=== PATIENT | female | born 1990 | race Caucasian/White ===

== ENCOUNTER 2020-08-15 11:56 | Observation (INO) | payer OTHER, SELFPAY ==
[2020-08-15 12:20] VITALS: BP 114/68; PULSE 113
[2020-08-15 13:00] VITALS: TEMP 36.6
[2020-08-15 13:13] LABS: Add Urine Microscopic? YES; Appearance Urine Cloudy (Clear); Bacteria Urine Trace /hpf; Bilirubin Urine Negative (Negative); Blood Urine Negative (Negative); Color Urine Amber (Yellow); Glucose Urine UA Negative (Negative); Ketones Urine 2+ mg/dL (Negative); Leukocyte Esterase Ur Negative LEU/UL (NEGATIVE); Mucus Urine Heavy /lpf; Nitrate Urine Negative (Negative); Protein Urine 2+ mg/dL (Negative); RBC Urine 0-2 /hpf (0-2); Squamous Epithelial Cell Urine Many /hpf (Few); Urobilinogen Urine Negative mg/dL (<2.0); WBC Urine 0-3 /hpf (0-3)
[2020-08-15 13:19] LABS: Specific Grav Ur 1.032 (1.001-1.035)
[2020-08-15 13:37] VITALS: BMI 27.4
--- NOTE | 2020-08-15 13:37 | OBADM ---
This patient, Alaina Medellin, admitted to the OB room OB Post 113 for observation. Patient/family oriented to hospital policies and general routines including ID bracelet, bed and alarms, visiting hours, pain management, procedures, bathroom and other care routines, personal items, smoking policy, room service/diet, and visiting hours. Patient/Family are encouraged to report perceived risks to care and to ask questions if they do not understand what they are told or what they should do.
--- NOTE | 2020-08-15 13:49 | PC.NURSE ---
1235- on unit,reviewed strip. Orders given to send UA.
--- NOTE | 2020-08-15 13:49 | PC.NURSE ---
[id number]- called, read UA results and informed irritability has decreased with irregular contractions. Discharge order received.
--- NOTE | 2020-08-15 14:06 | PM.OBTRLD ---
OB - Triage/Final Diagnosis Visit Information Comments/Additional reasons for admission: I have assessed the risk for this patient, Alaina Medellin, and determined that she would benefit from observation care. Evaluation Laboratory results: Laboratory Tests 08/15/20 12:50 Urine Color Brittny Urine Appearance Cloudy H Urine pH 6.0 Ur Specific [place] 1.032 Urine Protein 2+ H Urine Glucose (UA) Negative Urine Ketones 2+ H Ur Blood (Man) Negative Urine Nitrate Negative Urine Bilirubin Negative Urine Urobilinogen Negative Ur Leukocyte Esterase Negative Urine RBC 0-2 Urine WBC 0-3 Ur Squamous Epith Cells Many H Urine Bacteria Trace Urine Mucus Heavy H Vital signs: Vital Signs - 24 hr 08/15/20 12:20 Pulse Rate 113 H Blood Pressure 114/68 Final Diagnosis (1) Decreased movement: Code(s): O36.8190 - Decreased movements, unspecified trimester, not applicable or unspecified Status: Acute (2) Nausea and vomiting during : Code(s): O21.9 - Vomiting of , unspecified Status: Acute
== END 2020-08-15 14:24 | disposition home or self-care (01) ==
PROVIDERS: Admitting Provider Obstetrics & Gynecology; PCP Internal Medicine; Visit Provider Obstetrics & Gynecology
DX: O36.8130 Decreased fetal movements, third trimester, not applicable or unspecified (principal); O21.0 Mild hyperemesis gravidarum; Z3A.36 36 weeks gestation of pregnancy
CPT/HCPCS: 81001; G0378; G0379

== ENCOUNTER 2020-09-04 11:04 | Outpatient (CLI) | payer OTHER, SELFPAY ==
[2020-09-04 11:44] LABS: Hematocrit 38.5 % (37.0-47.0); Hemoglobin 13.1 g/dL (12.0-15.0); Mean Corpuscular Hemoglobin 31.5 pg (26-34); Mean Corpuscular Volume 92.5 fl (80-100); Platelet Count Result 148 k/mm3 (150-375); Red Blood Count 4.16 M/mm3 (4.2-5.4); Red Cell Distribution Width 13.2 % (11.5-14.5)
[2020-09-05 10:31] LABS: Rapid Plasma Reagin Non-Reactive (NonReactive)
== END 2020-09-04 11:05 | disposition home or self-care (01) ==
PROVIDERS: PCP Internal Medicine; Visit Provider Pediatrics
DX: Z01.818 Encounter for other preprocedural examination (principal)
CPT/HCPCS: 36415; 85027; 86592; 86850; 86900; 86901

== ENCOUNTER 2020-09-05 09:48 | Inpatient (IN) | payer OTHER, SELFPAY ==
--- NOTE | 2020-08-15 14:14 | PC.NURSE ---
VERIFIED WITH OR SCHEDULE AND PATIENT --C/S ON 09/05/20 AT 1200 PATIENT GIVEN REQUISITION FOR LAB DRAW ON 09/04/20
[2020-09-05] VITALS (55 sets, daily range): BP systolic 101–128; BP diastolic 66–92; PULSE 55–92; RESP 14–20; TEMP 36–36.8; O2SAT 97–100; BMI 28.3
--- NOTE | 2020-09-05 10:24 | WPDANESEPPF ---
Anes - Initial Pre Proc Eval Procedure: Operation Date: 09/05/20 12:00 Proposed Procedures p Repeat Section - Thaddeus Zheng MD Date/Time: 09/05/20 10:24 Surgeon: Thaddeus Zheng MD Pre Op Diagnosis: cs Patient Data Age: 30 Gender: F Height: Weight: Allergies Allergy/AdvReac Type Severity Reaction Status Date / Time No Known Allergies Allergy Verified 08/15/20 14:06 Home Medications Medication Instructions Recorded Confirmed Type prenat.vits,leroy,pfv-afku-ukipx 1 tablet PO HS 08/15/20 08/15/20 History [ #2] Patient hx anesthesia problems: none Family hx anesthesia problems: none [facility] Family History Family History (Updated 08/15/20 @ 14:16 by Makeda Patel RN) Father Diabetes mellitus Grandparent Alzheimer disease Heart failure Social History Social History Substance use: never Spiritual care concerns: No Anes - Eval Final PreProcedure Day of Procedure 09/05/20 10:24 Patient weight: overweight Heart: regular rate and rhythm Lungs: clear to auscultation and normal air movement Airway: Mallampati scale class II Neurological: alert and oriented Last oral intake: >/= 8 hours ASA classification: II Emergent: no Anesthetic plan: proceed Anesthesia type and monitoring: regional spinal Informed Consent: The patient's anesthetic plan and its attendant risks and benefits were discussed with the patient/family/POA. Questions were solicited and answers provided to the satisfaction of the patient/family/POA.
[2020-09-05] MEDS: LACTATED RINGERS 1,000 ML 999 ML IV CONT (10:41)
--- NOTE | 2020-09-05 10:44 | LDADM ---
This patient, Alaina Medellin, was admitted to Labor/Delivery/Recovery 120 on 09/05/20 at 09:48. Plans for labor, pain management and were discussed with patient. Patient/family oriented to hospital policies and general routines including ID bracelet, bed and alarms, visiting hours, pain management, procedures, bathroom and other care routines, personal items, smoking policy, room service/diet and guest tray routines, security routines, and visiting hours. Patient/Family are encouraged to report perceived risks to care and to ask questions if they do not understand what they are told or what they should do. See OBIX for further documentation.
[2020-09-05] MEDS: LACTATED RINGERS 1,000 ML 125 ML IV CONT (11:27)
--- NOTE | 2020-09-05 12:14 | P.HP_ITS ---
H&P: HPI History of Present Illness Date/Time: 09/05/20 12:14 30 y/o at 39 3/7 weeks here for repeat . GBS neg. uncomplicated. Chief Complaint: Here for c section. Review of Systems Review of Systems: All systems reviewed & are unremarkable except as noted in HPI and below PMFSH Surgical History Surgical History History of delivery History of varicose veins Family History Family History Father Diabetes mellitus Grandparent Alzheimer disease Heart failure Social History Social History Smoking status: Never smoker Substance use: never Spiritual care concerns: No Meds Home Medications and Allergies Home Medications Medication Instructions Recorded Confirmed Type prenat.vits,leroy,eny-polr-izkha 1 tablet PO HS 08/15/20 08/15/20 History [ #2] Allergies Allergy/AdvReac Type Severity Reaction Status Date / Time No Known Allergies Allergy Verified 08/15/20 14:06 Vital Signs Vital Signs - 24 hr 09/05/20 10:29 Pulse Rate 92 Blood Pressure 118/76 Exam Const: Orientation/consciousness: patient oriented x3 Other: Well- developed, well-nourished female in no acute distress. Neck: Thyroid: thyroid normal Lymphatic: no lymphadenopathy noted (in neck, axilla or inguinal nodes) Resp: Effort & Inspection: normal respiratory effort Auscultation: clear to auscultation bilaterally Cardio: Rate: regular rate Rhythm: regular rhythm Heart sounds: S1 normal heart sound present and S2 normal heart sound present GI: Other: ABD: Soft, nontender, nondistended, gravid. NST reactive. TOCO: no contractions. No guarding or rebound tenderness. No hepatosplenomegaly. : General: Yes no CVA tenderness Other: Cervix 1/th/-3 Back/Spine/Pelvis: Back: no CVA tenderness Skin: General skin exam: normal color and no rashes or lesions noted Neuro: General: patient oriented x3 Extrem: Other: Extremities: nontender with no edema Psych: Mental Status: mental status grossly normal Affect: normal affect Assessment and Plan Assessment and plan (1) History of delivery: Code(s): Z98.891 - History of uterine scar from previous surgery Status: Acute Assessment and Plan: A: IUP at 39 3/7 weeks, with prior , desiring repeat. P: She understands risks of surgery to include risks of anesthesia, risks of pain, infection, bleeding, blood products, thromboembolic phenomena and damage to adjacent structures such as bowel, bladder, ureters, blood vessels and nerves. She understands all these risks and elects to proceed with repeat .
--- NOTE | 2020-09-05 12:20 | WPDHPUPDATE1 ---
History and Physical Update Update Date/Time: 09/05/20 12:20 History and Physical has been reviewed, including an updated exam of the patient. There are NO changes in the patient's condition. Risks, benefits, and alternatives have been discussed and questions answered. Patient agrees to proceed with procedure.
--- NOTE | 2020-09-05 13:21 | PM.OBPRVD ---
OB - Delivery Note Procedure Delivery date: 09/05/20 Procedure: Procedures Operation Date: 09/05/20 12:00 Actual Procedure Side Surgeon p Repeat Section Thaddeus Zheng MD Delivery monitor: external FHT and external uterine Quantitative Blood Loss (ml): 460 Anesthesia type: Spinal Disposition: PACU Complications: None Narrative: The patient was taken to the operating room where she was prepared and draped in the usual sterile fashion in dorsal supine position with a leftward tilt. She received cefazolin preoperatively. Spinal anesthesia was found to be adequate. A Pfannenstiel skin incision was made along the previous scar line and was carried through to the underlying layer of the fascia. The fascia was incised in the midline and the incision was extended laterally. The fascia was dissected free of the underlying rectus muscles. The rectus muscles were in the midline. The peritoneum was identified, tented up and entered sharply. The peritoneal incision was extended superiorly and inferiorly with good visualization of the bladder. The bladder blade was placed. The vesicouterine peritoneum was identified, tented up and entered sharply. The incision was extended laterally and the bladder flap was developed. The bladder blade was replaced. The uterus was then incised sharply in a transverse fashion along the lower uterine segment. The incision was extended laterally. The 's head was delivered atraumatically to the sterile field, followed by the body. The nose and mouth were bulb suctioned. After a delay, the cord was clamped and cut. The infant was handed off the field. Cord blood was collected. The placenta was removed manually and was passed off the field. The uterus was exteriorized and cleared of all clots and debris. The uterine incision was reapproximated using 0 Monocryl in a running, locked fashion. A second, imbricating layer of the same suture was run. Excellent hemostasis resulted as did excellent reapproximation of the normal anatomy. The uterus was returned the abdomen. The pelvis was irrigated copiously with warmed normal saline. Hemaderm was applied to the bladder flap. Rigorous hemostasis was assured. The fascial layer was reapproximated using 0 Vicryl in a running fashion. The skin was closed with a running, subcuticular stitch of 4 0 Vicryl. Dermaflex was applied externally. Sponge, lap, needle and instrument counts were correct. The patient was taken to the recovery room in stable condition. The infant went to the nursery in stable condition. I was present and scrubbed the entire procedure. [place] Baby Date of : 09/05/20 Time of : 12:49 Weeks of gestation at delivery: 39 Infant gender: Female Weight (pounds): 8 Weight (ounces): 9 presentation: vertex Placenta delivery description: Spontaneous and Normal Configuration cord vessel description: 3 Vessels and Delayed Cord Clamping score one minute: 8 score five minutes: 9
--- NOTE | 2020-09-05 13:24 | PM.OBDSVD ---
DS: Admitting Diagnosis Admitting Diagnosis Admitting Diagnosis: IUP at 39 3/7 weeks Prior DS: Discharge Diagnosis Discharge Diagnosis (1) History of delivery: Code(s): Z98.891 - History of uterine scar from previous surgery Status: Acute (2) Term delivered: Code(s): O80 - Encounter for full-term uncomplicated delivery Status: Acute OB - DS: Summary OB Procedures : None OB Procedures Intrapartum: OB Procedures: : None Peripartum Data Procedures: Procedures Operation Date: 09/05/20 12:00 Actual Procedure Side Surgeon p Repeat Section Thaddeus Zheng MD Discharge Plan Discharge Attending physician on discharge: Thaddeus Zheng Discharging Clinician: Thaddeus Zheng Patient Disposition: Home, Self-Care Activity: may shower, may drive after 2 weeks and pelvic rest Diet: regular Wound Care Instructions: incision open to air Discharge Instructions: Call or return if temperature above 100.4? F, increased abdominal pain, increased vaginal bleeding or any new problems. Stand Alone Forms: General Discharge Information Follow-up/Referrals: Thaddeus Zheng MD [Physician] - 4 Weeks Discharge Medications: New hydrocodone-acetaminophen 5-325 mg tablet 1 tablet PO Q6H PRN (Reason: pain) Qty: 30 RF: 0 ibuprofen 600 mg tablet 600 mg PO Q6H PRN (Reason: cramps) Qty: 30 RF: 0 No Action #2 Tablet 1 tablet PO HS RF: 0 Date of admission: 09/05/20 09:48 Primary Care Provider: JamesIsma Admitting Provider: Thaddeus Zheng Attending physician on admission: Thaddeus Zheng Condition: Stable
[2020-09-05] MEDS: OXYTOCIN 30 UNITS/NS 500 ML 30 UNITS/500 ML BAG 125 UNITS IV CONT (15:14)
--- NOTE | 2020-09-05 15:42 | PC.NURSE ---
Patient transferred to post room #285 via [id number]. Support person present. Oriented to unit, room, information board, rooming in, admission packet and security measures. Patient verbalizes understanding.
[2020-09-05] MEDS: DEXTROSE 5%/0.45% SOD CHL 1,000 ML 125 ML IV CONT (20:20)
[2020-09-05] MEDS: KETOROLAC 30 MG/ML VIAL (*BKC) IV PUSH (20:21)
[2020-09-06] VITALS: BP 121/78; PULSE 78; RESP 16; TEMP 36.5; O2SAT 100
[2020-09-06 04:00] VITALS: BP 115/73; PULSE 80; RESP 16; TEMP 36.9; O2SAT 98
[2020-09-06 05:19] LABS: Basophils Percent Auto 0.4 % (0.2-1.2); Eosinophils Absolute Auto 0.1 K/mm3 (0-0.3); Eosinophils Percent Auto 1.1 % (0-4.4); Hematocrit 32.3 % (37.0-47.0); Hemoglobin 10.8 g/dL (12.0-15.0); Immature Granulocyte Absolute 0.03 K/mm3 (0.00-0.031); Immature Granulocyte Percent A 0.4 % (0-0.5); Lymphocytes Absolute Auto 1.24 K/mm3 (0.9-3.2); Lymphocytes Percent Auto 17.7 % (18.3-44.2); Mean Corpuscular HGB Conc 33.4 g/dl (32-36); Mean Corpuscular Hemoglobin 31.3 pg (26-34); Mean Corpuscular Volume 93.6 fl (80-100); Mean Platelet Volume 9.4 fl (7.4-10.4); Monocytes Absolute Auto 0.3 K/mm3 (0.1-0.6); Monocytes Percent Auto 4.6 % (2.6-8.5); Neutrophils Absolute Auto 5.3 K/mm3 (1.3-6.7); Neutrophils Percent Auto 75.8 % (45.5-73.1); Platelet Count Result 121 k/mm3 (150-375); Red Blood Count 3.45 M/mm3 (4.2-5.4)
[2020-09-06] MEDS: KETOROLAC 30 MG/ML VIAL (*BKC) IV PUSH (07:17)
[2020-09-06] MEDS: DOCUSATE SODIUM 100 MG CAPSULE PO ×2 (07:17→16:09)
[2020-09-06] MEDS: MULTIVIT/MIN/PREN/FOL AC/IRON TABLET 1 TAB PO (07:17)
[2020-09-06] MEDS: LANOLIN (LANSINOH) 7.5 GM CREAM 1 APPLIC TOPICAL (07:17)
[2020-09-06 07:32] VITALS: BP 112/73; PULSE 95; RESP 18; TEMP 37
--- NOTE | 2020-09-06 09:20 | PC.NURSE ---
Mother called out for assist with feeding, reporting is on and off during feedings with some tenderness. Mother states she had issues with over supply with first child and is concerned with over supply with this child. Discussed possible reasons for issue and stressed it may not happen with this child. Infant is able to freely thrust tongue past gum ridge and flange both lips. does curl tongue up making it difficult to get nipple in deeply. Skin is intact on both nipples, no redness and bruising noted. Reviewed infant feeding cues, frequencies, duration of feedings, feeding elimination flow sheet, and signs of adequate intake. Demonstrated stimulation techniques to wake for feeding. Assisted with to breast. Reviewed positioning/alignment in cross cradle, holding breast in ?U? hold and guided asymmetrical latch on. Several attempts before able to latch correctly. Infant nursed eagerly, with steady draws and frequent swallowing noted. Reviewed signs of a correct latch, effective nursing and suck swallow ratio. Infant would slip to shallow latch, mother reports tenderness. Demonstrated how to adjust latch more deeply while feeding. Mother reports she can feel change in latch and has no tenderness. Nipple care reviewed of lanolin after feedings, warm compresses as needed. Suggested mother stimulate while feeding to increase stimulate, increase intake and to assist with maintaining deep latch. Instructed mother to call out for RN assistance if she is unable to latch infant for feeding or she has discomfort with nursing.
[2020-09-06 11:49] VITALS: BP 109/77; PULSE 94; RESP 16; TEMP 36.6; O2SAT 99
--- NOTE | 2020-09-06 12:12 | WPDANLDPN2 ---
Anes-Prog Note L&D Date/Time: 09/06/20 12:12 Comfortable throughout: section Neuraxial method: spinal Epidural/Spinal procedure site: clean & non-tender Neuro status: Neuro function grossly intact. Cardiovascular status: normal Respiratory status: normal Airway patency: baseline Mental status: baseline Post-Op hydration status: normal Vital Signs: Last Vital Signs Temp 36.6 C 09/06/20 11:49 Pulse 94 09/06/20 11:49 Resp 16 09/06/20 11:49 BP 109/77 09/06/20 11:49 Pulse Ox 99 09/06/20 11:49 Pain score (VAS): 03/04 I/O: Intake & Output 09/05/20 09/06/20 09/06/20 23:59 07:59 15:59 Intake Total 500 950 800 Output Total 250 2375 600 Balance 250 -1425 200 Post-procedural complaints: none Patient feedback: Patient satisfied with anesthetic care.
--- NOTE | 2020-09-06 12:12 | WPDANLDNPN2 ---
Anes-Prog Note L&D-Neuraxial Date/Time: 09/06/20 12:12 Neuraxial medications: intrathecal PF morphine Opiod-related complaints: none Patient feedback: Patient satisfied with post-operative pain management.
--- NOTE | 2020-09-06 12:30 | PC.NURSE ---
Mother called out for assist with feeding. Mother is attempting to breast, is crying and fussy, making eager attempts and no maintaining latch. Suggested to calm with small amount of formula dripped to and on nipple. Assisted with infant to breast. Reviewed positioning/alignment in cross cradle, holding breast in ?U? hold and guided asymmetrical latch on. Discussed rational for each. Infant able to latch correctly. Infant nursed eagerly, with steady draws and frequent swallowing noted. Suggested mother stimulate while feeding to increase stimulate, increase intake and to assist with maintaining deep latch. Reviewed signs of a correct latch, effective nursing and suck swallow ratio. would slip to shallow latch, mother reports tenderness. Demonstrated how to adjust latch more deeply while feeding. Mother reports she can feel change in latch and has no tenderness. on and off several times this feeding. Nipple care reviewed of lanolin after feedings, warm compresses as needed. Instructed mother to call out for RN assistance if she is unable to latch for feeding or she has discomfort with nursing. Mother continues to voice concerns with feeding status. Reviewed how is fed is mother's choice and she can continue to supplement after if she chooses. Mother states she is considering formula feeding only. Advised mother is WNL for signs of adequate intake at this time.
--- NOTE | 2020-09-06 13:08 | P.PNOB_ITS ---
OB - PN: Subj Subjective Date/time seen: 09/06/20 13:08 Narrative: Pain OK. Tolerating diet. OB - PN: Obj Data Labs CBC & Chem 7: 09/06/20 03:56 Labs: Laboratory Results - last 24 hr 09/06/20 03:56 WBC 7.0 RBC 3.45 L Hgb 10.8 L Hct 32.3 L MCV 93.6 MCH 31.3 MCHC 33.4 RDW 13.0 Plt Count 121 L MPV 9.4 Immature Gran % (Auto) 0.4 Neut % (Auto) 75.8 H Lymph % (Auto) 17.7 L [place] % (Auto) 4.6 Eos % (Auto) 1.1 Baso % (Auto) 0.4 Lymph # (Auto) 1.24 [place] # (Auto) 0.3 Eos # (Auto) 0.1 Baso # (Auto) 0.0 Abs Immat Gran (auto) 0.03 Absolute Neuts (auto) 5.3 Absolute Nucleated RBC 0.0 Nucleated RBC % 0.0 OB - PN A/P Plan Comments: A: POD#1, doing well. P: Routine care. Exam Narrative: Exam Narrative: AVSS I/O OK ABD soft, nontender, fundus firm. Incision c/d/i. EXT nontender
--- NOTE | 2020-09-06 14:00 | PC.NURSE ---
Called to room. Pt. states she has decided to bottle feed infant.
[2020-09-06 16:00] VITALS: BP 109/77; PULSE 94; RESP 16; TEMP 36.6; O2SAT 99
[2020-09-06] MEDS: IBUPROFEN 600 MG TABLET PO (16:08)
[2020-09-06] MEDS: SIMETHICONE 80 MG TAB.CHEW PO (16:09)
[2020-09-06 20:00] VITALS: BP 118/83; PULSE 77; RESP 16; TEMP 36.6; O2SAT 99
[2020-09-06] MEDS: HYDROcodone/acetaminophen (*CRX) 5-325 MG TABLET 1 TAB PO (21:15)
[2020-09-07] MEDS: HYDROcodone/acetaminophen (*CRX) 5-325 MG TABLET 1 TAB PO ×3 (03:25→14:41)
[2020-09-07] MEDS: IBUPROFEN 600 MG TABLET PO ×2 (03:25→10:40)
[2020-09-07] MEDS: TETANUS,DIPHTHERIA,AC PERTUSSIS ADULT (0.5 ML) BOOSTRIX IM (03:26)
[2020-09-07 09:30] VITALS: BP 125/71; PULSE 87; RESP 18; TEMP 36.6; O2SAT 99
[2020-09-07] MEDS: MULTIVIT/MIN/PREN/FOL AC/IRON TABLET 1 TAB PO (10:39)
[2020-09-07] MEDS: DOCUSATE SODIUM 100 MG CAPSULE PO (10:39)
--- NOTE | 2020-09-07 12:57 | PM.OBPNVD ---
OB - PN: Subj Subjective Date/time seen: 09/07/20 12:57 Narrative: Pain OK. Tolerating diet. Would like to go home. OB - PN: Obj Data Labs CBC & Chem 7: 09/06/20 03:56 OB - PN A/P Plan Comments: A: POD#2, doing well. P: Home to f/u 4 weeks. Exam Narrative: Exam Narrative: AVSS ABD soft, nontender, fundus firm. Incision c/d/i. EXT nontender
[2020-09-10 08:56] VITALS: BP 131/85; PULSE 71; RESP 16; TEMP 36.7; O2SAT 99
== END 2020-09-07 15:38 | disposition home or self-care (01) | DRG 788 ==
LOC: ANHLDR 13:26 → ANHOB2 15:50
PROVIDERS: Admitting Provider Obstetrics & Gynecology; PCP Internal Medicine; Visit Provider Obstetrics & Gynecology
PROC: 10D00Z1 Extraction of Products of Conception, Low, Open Approach (ICD-10-PCS; CPT 59514; principal; 2020-09-05 12:00)
DX: O34.211 Maternal care for low transverse scar from previous cesarean delivery (principal); Z37.0 Single live birth; Z3A.39 39 weeks gestation of pregnancy
CPT/HCPCS: 36415; 85025; 85027; 86592; 86850; 86900; 86901; 90715; A9270; J0131; J1885; J2274; J2370; J2405; J2590; J7120

== ENCOUNTER 2023-07-22 09:43 | Inpatient (IN) | payer OTHER, SELFPAY ==
[2023-07-22] VITALS (69 sets, daily range): BP systolic 84–131; BP diastolic 23–92; PULSE 56–174; RESP 16–19; TEMP 36.4–37.2; O2SAT 96–100; BMI 28.6
--- NOTE | 2023-07-22 09:43 | LDADM ---
This patient, Alaina Medellin, was admitted to Labor/Delivery/Recovery 120 on 07/22/23 at 09:43. Plans for labor, pain management and were discussed with patient. Patient/family oriented to hospital policies and general routines including ID bracelet, bed and alarms, visiting hours, pain management, procedures, bathroom and other care routines, personal items, smoking policy, room service/diet and guest tray routines, security routines, and visiting hours. Patient/Family are encouraged to report perceived risks to care and to ask questions if they do not understand what they are told or what they should do. See OBIX for further documentation.
[2023-07-22] MEDS: ACETAMINOPHEN 500 MG TABLET 1000 MG PO (10:16)
[2023-07-22] MEDS: LACTATED RINGERS 1,000 ML 125 ML IV CONT ×2 (10:17→11:01)
[2023-07-22 10:30] LABS: Basophils Percent Auto 0.3 % (0.2-1.2); Eosinophils Absolute Auto 0.1 K/mm3 (0-0.3); Eosinophils Percent Auto 1.1 % (0-4.4); Hematocrit 35.8 % (37.0-47.0); Hemoglobin 12.3 g/dL (12.0-15.0); Immature Granulocyte Absolute 0.03 K/mm3 (0.00-0.031); Immature Granulocyte Percent A 0.5 % (0-0.5); Lymphocytes Absolute Auto 1.77 K/mm3 (0.9-3.2); Lymphocytes Percent Auto 27.9 % (18.3-44.2); Mean Corpuscular HGB Conc 34.4 g/dl (32-36); Mean Corpuscular Hemoglobin 29.9 pg (26-34); Mean Corpuscular Volume 86.9 fl (80-100); Mean Platelet Volume 9.4 fl (7.4-10.4); Monocytes Absolute Auto 0.3 K/mm3 (0.1-0.6); Monocytes Percent Auto 4.7 % (2.6-8.5); Neutrophils Absolute Auto 4.2 K/mm3 (1.3-6.7); Neutrophils Percent Auto 65.5 % (45.5-73.1); Platelet Count Result 141 k/mm3 (150-375); Red Blood Count 4.12 M/mm3 (4.2-5.4); Red Cell Distribution Width 15.8 % (11.5-14.5); White Blood Count 6.3 K/mm3 (4.5-10.0)
--- NOTE | 2023-07-22 11:22 | WPDANESEPPF ---
Anes - Initial Pre Proc Eval Procedure: Operation Date: 07/22/23 12:00 Proposed Procedures p Repeat Section - Thaddeus Zheng MD Date/Time: 07/22/23 11:22 Surgeon: Thaddeus Zheng MD Pre Op Diagnosis: c/s Patient Data Age: 33 Gender: F Height: 1.7 m Weight: 83 kg Last Vital Signs Pulse 77 07/22/23 10:45 BP 120/82 07/22/23 10:45 O2 Del Method Room Air 07/22/23 10:38 Allergies Allergy/AdvReac Type Severity Reaction Status Date / Time No Known Allergies Allergy Verified 04/22/22 08:44 Home Medications Medication Instructions Recorded Confirmed Type prenat.vits,leroy,mox-cjww-vcmhj 1 tablet PO HS 08/15/20 07/22/23 History Laboratory Tests 07/22/23 10:23 WBC 6.3 K/mm3 (4.5-10.0) RBC 4.12 L M/mm3 (4.2-5.4) Hgb 12.3 g/dL (12.0-15.0) Hct 35.8 L % (37.0-47.0) MCV 86.9 fl (80-100) MCH 29.9 pg (26-34) MCHC 34.4 g/dl (32-36) RDW 15.8 H % (11.5-14.5) Plt Count 141 L k/mm3 (150-375) MPV 9.4 fl (7.4-10.4) Immature Gran % (Auto) 0.5 % (0-0.5) Neut % (Auto) 65.5 % (45.5-73.1) Lymph % (Auto) 27.9 % (18.3-44.2) [place] % (Auto) 4.7 % (2.6-8.5) Eos % (Auto) 1.1 % (0-4.4) Baso % (Auto) 0.3 % (0.2-1.2) Lymph # (Auto) 1.77 K/mm3 (0.9-3.2) [place] # (Auto) 0.3 K/mm3 (0.1-0.6) Eos # (Auto) 0.1 K/mm3 (0-0.3) Baso # (Auto) 0.0 K/mm3 (0.0-0.1) Abs Immat Gran (auto) 0.03 K/mm3 (0.00-0.031) Absolute Neuts (auto) 4.2 K/mm3 (1.3-6.7) Absolute Nucleated RBC 0.000 K/mm3 (0.0-0.012) Nucleated RBC % 0.0 % (0.0-0.2) RPR Pending HIV 1&2 Ab/P24 Ag 4thGn Pending Blood Type A Positive Antibody Screen Pending Patient hx anesthesia problems: none Family hx anesthesia problems: none Results Review: All pre-operative results and documents have been reviewed as part of the pre-operative evaluation. [facility] Surgical History Surgical History History of delivery History of varicose veins Family History Family History Father Diabetes mellitus Grandparent Alzheimer disease Heart failure Social History Social History Smoking status: Never smoker Second hand tobacco smoke exposure: No Alcohol intake: never Substance use: never Do You Feel Safe in your Home?: Yes Lack of Transportation: No Lack of Food: Never True Current Housing: I Have Housing Concerned About Future Housing: No Difficulty Paying Gas/Electric Bills: No Difficulty Paying for Meds: No Currently Unemployed: No Education: Bachelor's Degree Difficulty w/ Childcare or Family Care: No Spiritual care concerns: No Anes - Eval Final PreProcedure Day of Procedure 07/22/23 11:22 Patient weight: normal Heart: regular rate and rhythm Lungs: clear to auscultation Airway: Mallampati scale class 1 Neurological: alert and oriented Last oral intake: >/= 8 hours ASA classification: II Emergent: no Anesthetic plan: proceed Anesthesia type and monitoring: regional spinal and standard monitoring Results Review: All pre-operative results and documents have been reviewed as part of the pre-operative evaluation. Informed Consent: The patient's anesthetic plan and its attendant risks and benefits were discussed with the patient/family/POA. Questions were solicited and answers provided to the satisfaction of the patient/family/POA.
[2023-07-22 11:29] LABS: HIV 1/2 Ab P24 Ag Result Negative (Negative)
--- NOTE | 2023-07-22 11:35 | PM.IMHP ---
H&P: HPI History of Present Illness Date/Time: 07/22/23 11:35 Chief Complaint: Here for c section Narrative: 33 y/o at 39 3/7 weeks with prior deliveries x 2, here for repeat. GBS neg. EFW 9#3oz 2 weeks ago. Review of Systems Review of Systems: All systems reviewed & are unremarkable except as noted in HPI and below PMFSH Surgical History Surgical History History of delivery History of varicose veins Family History Family History Father Diabetes mellitus Grandparent Alzheimer disease Heart failure Social History Social History Smoking status: Never smoker Second hand tobacco smoke exposure: No Alcohol intake: never Substance use: never Do You Feel Safe in your Home?: Yes Lack of Transportation: No Lack of Food: Never True Current Housing: I Have Housing Concerned About Future Housing: No Difficulty Paying Gas/Electric Bills: No Difficulty Paying for Meds: No Currently Unemployed: No Education: Bachelor's Degree Difficulty w/ Childcare or Family Care: No Spiritual care concerns: No Meds Home Medications and Allergies Home Medications Medication Instructions Recorded Confirmed Type prenat.vits,leroy,kzo-nexr-vsqtw 1 tablet PO HS 08/15/20 07/22/23 History Allergies Allergy/AdvReac Type Severity Reaction Status Date / Time No Known Allergies Allergy Verified 04/22/22 08:44 Vital Signs Vital Signs - 24 hr 07/22/23 10:38 07/22/23 10:23 07/22/23 10:30 Pulse Rate 93 80 Blood Pressure 116/82 116/87 Oxygen Delivery Room Air 07/22/23 10:45 Pulse Rate 77 Blood Pressure 120/82 Oxygen Delivery Exam Const: Orientation/consciousness: patient oriented x3 Other: Well-developed, well-nourished female in no acute distress. Neck: Thyroid: thyroid normal Lymphatic: no lymphadenopathy noted (in neck, axilla or inguinal nodes) Resp: Effort & Inspection: normal respiratory effort Auscultation: clear to auscultation bilaterally Cardio: Rate: regular rate Rhythm: regular rhythm Heart sounds: S1 normal heart sound present and S2 normal heart sound present GI: Other: ABD: Soft, nontender, nondistended, gravid. NST reactive. TOCO: rare contractions. No guarding or rebound tenderness. No hepatosplenomegaly. : General: Yes no CVA tenderness Other: Closed/thick Back/Spine/Pelvis: Back: no CVA tenderness Skin: General skin exam: normal color and no rashes or lesions noted Neuro: General: patient oriented x3 Extrem: Other: Extremities: nontender with no edema Psych: Mental Status: mental status grossly normal Affect: normal affect H&P: Results Labs Labs: Short CBC 07/22/23 Range/Units 10:23 WBC 6.3 (4.5-10.0) K/mm3 Hgb 12.3 (12.0-15.0) g/dL Hct 35.8 L (37.0-47.0) % Plt Count 141 L (150-375) k/mm3 Assessment and Plan Assessment and plan (1) History of delivery: Code(s): Z98.891 - History of uterine scar from previous surgery Status: Acute Assessment and Plan: A: IUP at 39 3/7 weeks with prior cesareans, desiring repeat. P: Offered repeat delivery. She understands risks of surgery to include risks of anesthesia, risks of pain, infection, bleeding, blood products, thromboembolic phenomena and damage to adjacent structures such as bowel, bladder, ureters, blood vessels and nerves. She understands all these risks and elects to proceed with surgery. (2) Term : Code(s): Z34.90 - Encounter for supervision of normal , unspecified, unspecified trimester Status: Acute
[2023-07-22] MEDS: ONDANSETRON INJ 4 MG/2 ML VIAL IV PUSH (11:58)
[2023-07-22] MEDS: FAMOTIDINE 20 MG/2 ML VIAL IV PUSH (11:59)
--- NOTE | 2023-07-22 12:00 | WPDHPUPDATE1 ---
History and Physical Update Update Date/Time: 07/22/23 12:00 History and Physical has been reviewed, including an updated exam of the patient. There are NO changes in the patient's condition. Risks, benefits, and alternatives have been discussed and questions answered. Patient agrees to proceed with procedure.
[2023-07-22] MEDS: ceFAZolin 2 GM/D5W 50 ML 2 GM/50 ML BAG IVPB (12:04)
--- NOTE | 2023-07-22 13:16 | SUR.PHASEI ---
200 ml remains in LR with 40 units Pitocin infusing.
--- NOTE | 2023-07-22 13:18 | W.PM.OBCSD ---
OB - Delivery Note Procedure Delivery date: 07/22/23 Pre-op diagnosis: Previous Delivery Post-op Diagnosis: Same Induction method: None Delivery monitor: External FHT and External Uterine Procedure Performed: Repeat Surgeon: Thaddeus Zheng MD Anesthesia type: Epidural Description of Procedure/Findings: Findings: Normal-appearing uterus, tubes and ovaries. Techniques: The patient was taken to the operating room where she was prepared and draped in the usual sterile fashion in dorsal supine position with a leftward tilt. She received cefazolin preoperatively. Spinal anesthesia was found to be adequate. A Pfannenstiel skin incision was made, excising the previous scars, and carrying through to the underlying layer of the fascia. The fascia was incised in the midline and the incision was extended laterally. The fascia was dissected free of the underlying rectus muscles. The rectus muscles were in the midline. The peritoneum was identified, tented up and entered sharply. The peritoneal incision was extended superiorly and inferiorly with good visualization of the bladder. The bladder blade was placed. The vesicouterine peritoneum was identified, tented up and entered sharply. The incision was extended laterally and the bladder flap was developed. The bladder blade was replaced. The uterus was then incised sharply in a transverse fashion along the lower uterine segment. The incision was extended laterally. The 's head was delivered atraumatically to the sterile field, followed by the body. The nose and mouth were bulb suctioned. After a delay, the cord was clamped and cut. The was handed off the field. Cord blood was collected. The placenta was removed manually and was passed off the field. The uterus was exteriorized and cleared of all clots and debris. The uterine incision was reapproximated using 0 Monocryl in a running, locked fashion. A second, imbricating layer of the same suture was run. Excellent hemostasis resulted as did excellent reapproximation of the normal anatomy. The uterus was returned the abdomen. The pelvis was irrigated copiously with warmed normal saline. Hemaderm was applied to the bladder flap. Rigorous hemostasis was assured. The fascial layer was reapproximated using 0 Vicryl in a running fashion. The skin was closed with a running, subcuticular stitch of 4 0 Vicryl. Dermaflex was applied externally. Sponge, lap, needle and instrument counts were correct. The patient was taken to the recovery room in stable condition. The went to the nursery in stable condition. I was present and scrubbed the entire procedure. Specimen: Yes (Cord blood) Estimated Blood Loss: 615 Drains: Yes (Isbell) Packing: No Pathology: Yes (Cord blood) Complications: None Condition: Stable Disposition: PACU [facility] Baby Date of : 07/22/23 Time of : 12:36 Weeks of gestation at delivery: 39 Infant gender: Male Weight (pounds): 9 Weight (ounces): 9 presentation: vertex Placenta delivery description: Manual Removal and Normal Configuration Cord Vessel Description: 3 Vessels and Delayed Cord Clamping score one minute: 8 score five minutes: 9
--- NOTE | 2023-07-22 13:21 | PM.OBDSVD ---
DS: Admitting Diagnosis Discharge Date 07/24/23 <Juan Alvarado MD - Last Filed: 07/24/23 06:04> Admitting Diagnosis IUP at 39 3/7 weeks Prior , desiring repeat <Thaddeus Zheng MD - Last Filed: 07/31/23 14:36> DS: Discharge Diagnosis Discharge Diagnosis (1) delivery delivered: Code(s): O82 - Encounter for delivery without indication <Thaddeus Zheng MD - Last Filed: 07/31/23 14:36> Status: Acute <Thaddeus Zheng MD - Last Filed: 07/31/23 14:36> OB - DS: Summary OB Procedures : None <Thaddeus Zheng MD - Last Filed: 07/31/23 14:36> OB Procedures Intrapartum: <Thaddeus Zheng MD - Last Filed: 07/31/23 14:36> OB Procedures: : None <Thaddeus Zheng MD - Last Filed: 07/31/23 14:36> Peripartum Data Procedures: Procedures Operation Date: 07/22/23 12:00 Actual Procedure Side Surgeon p Repeat Section Not Applicable Thaddeus Zheng MD <Thaddeus Zheng MD - Last Filed: 07/31/23 14:36> Time Spent with Patient Time attestation: Total time spent providing and/or coordinating discharge services: <Thaddeus Zheng MD - Last Filed: 07/31/23 14:36> Exam Const: General: cooperative, healthy appearing and comfortable <Juan Alvarado MD - Last Filed: 07/24/23 06:04> Nutritional Appearance: average body habitus <Juan Alvarado MD - Last Filed: 07/24/23 06:04> Orientation/consciousness: oriented to person, oriented to place and oriented to time <Juan Alvarado MD - Last Filed: 07/24/23 06:04> HENMT: Head: normal to inspection <Juan Alvarado MD - Last Filed: 07/24/23 06:04> Resp: Effort & Inspection: normal respiratory effort <Juan Alvarado MD - Last Filed: 07/24/23 06:04> Cardio: Rate: regular rate <Juan Alvarado MD - Last Filed: 07/24/23 06:04> Rhythm: regular rhythm <Juan Alvarado MD - Last Filed: 07/24/23 06:04> Heart sounds: S1 normal heart sound present and S2 normal heart sound present <Juan Alvarado MD - Last Filed: 07/24/23 06:04> GI: Inspection: normal to inspection and incision (cdi) <Juan Alvarado MD - Last Filed: 07/24/23 06:04> DS: Data Data Completed and Pending Labs on day of discharge: Labs from last 24 hours 07/22/23 10:23 WBC 6.3 RBC 4.12 L Hgb 12.3 Hct 35.8 L MCV 86.9 MCH 29.9 MCHC 34.4 RDW 15.8 H Plt Count 141 L MPV 9.4 Immature Gran % (Auto) 0.5 Neut % (Auto) 65.5 Lymph % (Auto) 27.9 [place] % (Auto) 4.7 Eos % (Auto) 1.1 Baso % (Auto) 0.3 Lymph # (Auto) 1.77 [place] # (Auto) 0.3 Eos # (Auto) 0.1 Baso # (Auto) 0.0 Abs Immat Gran (auto) 0.03 Absolute Neuts (auto) 4.2 Absolute Nucleated RBC 0.000 Nucleated RBC % 0.0 RPR Pending HIV 1&2 Ab/P24 Ag 4thGn Negative Blood Type A Positive Antibody Screen Negative <Thaddeus Zheng MD - Last Filed: 07/31/23 14:36> Discharge Plan Discharge Attending physician on discharge: Thaddeus Zheng <Thaddeus Zheng MD - Last Filed: 07/31/23 14:36> Thaddeus Zheng <Juan Alvarado MD - Last Filed: 07/24/23 06:04> Consulting providers: Juan Sam; Gini Silverman <Thaddeus Zheng MD - Last Filed: 07/31/23 14:36> Discharging Clinician: Thaddeus Zheng <Thaddeus Zheng MD - Last Filed: 07/31/23 14:36> Thaddeus Zheng <Juan Alvarado MD - Last Filed: 07/24/23 06:04> Patient Disposition: Home, Self-Care <Thaddeus Zheng MD - Last Filed: 07/31/23 14:36> Activity: may shower, may drive after 2 weeks and pelvic rest <Thaddeus Zheng MD - Last Filed: 07/31/23 14:36> may shower, may drive after 2 weeks and pelvic rest <Juan Alvarado MD - Last Filed: 07/24/23 06:04> Diet: regular <Thaddeus Zheng MD - Last Filed: 07/31/23 14:36> regular <Juan Alvarado MD - Last Filed: 07/24/23
[2023-07-22] MEDS: fentaNYL CITRATE INJ (*CRX) 100 MCG/2 ML VIAL 25 MCG IV PUSH (14:02)
[2023-07-22 14:53] LABS: Rapid Plasma Reagin Non-Reactive (NonReactive)
[2023-07-22] MEDS: diphenhydrAMINE HCl INJ 50 MG/ML VIAL 25 MG IV PUSH (15:12)
[2023-07-22] MEDS: OXYTOCIN 30 UNITS/NS 500 ML 30 UNITS/500 ML BAG 125 UNITS IV CONT (15:13)
--- NOTE | 2023-07-22 16:07 | OBPPTRN ---
Patient transferred to post room #281 via stretcher. Support person present. Oriented to unit, room, information board, rooming in, admission packet and security measures. Patient verbalizes understanding.
[2023-07-22] MEDS: DOCUSATE SODIUM 100 MG CAPSULE PO (16:59)
[2023-07-22] MEDS: KETOROLAC 15 MG/ML VIAL (*BKC) IV PUSH (16:59)
[2023-07-22] MEDS: SIMETHICONE 80 MG TAB.CHEW PO (16:59)
[2023-07-22] MEDS: ACETAMINOPHEN 325 MG TABLET 650 MG PO (16:59)
[2023-07-23] MEDS: ACETAMINOPHEN 325 MG TABLET 650 MG PO ×4 (00:52→18:54)
[2023-07-23] MEDS: KETOROLAC 15 MG/ML VIAL (*BKC) IV PUSH ×2 (00:52→07:15)
[2023-07-23 04:00] VITALS: BP 98/62; PULSE 79; RESP 16; TEMP 36.7; O2SAT 98
[2023-07-23 05:54] LABS: Basophils Percent Auto 0.4 % (0.2-1.2); Eosinophils Absolute Auto 0.1 K/mm3 (0-0.3); Eosinophils Percent Auto 1.8 % (0-4.4); Hematocrit 32.2 % (37.0-47.0); Hemoglobin 10.7 g/dL (12.0-15.0); Immature Granulocyte Absolute 0.04 K/mm3 (0.00-0.031); Immature Granulocyte Percent A 0.5 % (0-0.5); Lymphocytes Absolute Auto 1.44 K/mm3 (0.9-3.2); Lymphocytes Percent Auto 19.6 % (18.3-44.2); Mean Corpuscular HGB Conc 33.2 g/dl (32-36); Mean Corpuscular Hemoglobin 29.7 pg (26-34); Mean Corpuscular Volume 89.4 fl (80-100); Mean Platelet Volume 9.7 fl (7.4-10.4); Monocytes Absolute Auto 0.3 K/mm3 (0.1-0.6); Monocytes Percent Auto 3.4 % (2.6-8.5); Neutrophils Absolute Auto 5.5 K/mm3 (1.3-6.7); Neutrophils Percent Auto 74.3 % (45.5-73.1); Platelet Count Result 123 k/mm3 (150-375); Red Cell Distribution Width 15.6 % (11.5-14.5); White Blood Count 7.4 K/mm3 (4.5-10.0)
[2023-07-23] MEDS: SIMETHICONE 80 MG TAB.CHEW PO ×3 (07:16→17:12)
--- NOTE | 2023-07-23 08:53 | WPDANLDPN2 ---
Anes-Prog Note L&D Date/Time: 07/23/23 08:53 Comfortable throughout: section Neuraxial method: spinal Epidural/Spinal procedure site: clean & non-tender Neuro status: Neuro function grossly intact. Cardiovascular status: normal Respiratory status: normal Airway patency: baseline Mental status: baseline Post-Op hydration status: normal Vital Signs: Last Vital Signs Temp 36.7 C 07/23/23 04:00 Pulse 79 07/23/23 04:00 Resp 16 07/23/23 04:00 BP 98/62 L 07/23/23 04:00 Pulse Ox 98 07/23/23 04:00 O2 Del Method Room Air 07/23/23 04:00 Pain score (VAS): 0 I/O: Intake & Output 07/22/23 07/23/23 07/23/23 23:59 07:59 15:59 Intake Total 1050 1100 Output Total 1400 2200 Balance -350 -1100 Post-procedural complaints: pruritis Patient feedback: Patient satisfied with anesthetic care. Other findings: ordered claritin for patient comfort
--- NOTE | 2023-07-23 08:54 | WPDANLDNPN2 ---
Anes-Prog Note L&D-Neuraxial Date/Time: 07/23/23 08:54 Neuraxial medications: intrathecal PF morphine Opiod-related complaints: pruritis Patient feedback: Patient satisfied with post-operative pain management.
[2023-07-23 08:55] VITALS: BP 118/69; PULSE 76; RESP 16; TEMP 36.9; O2SAT 100
[2023-07-23] MEDS: DOCUSATE SODIUM 100 MG CAPSULE PO ×2 (08:59→17:12)
[2023-07-23] MEDS: MULTIVIT/MIN/PREN/FOL AC/IRON TABLET 1 TAB PO (08:59)
--- NOTE | 2023-07-23 09:10 | P.PNOB_ITS ---
OB - PN: Subj Subjective Date/time seen: 07/23/23 09:10 Narrative: Pain OK. Tolerating diet. Would like circumcision for son. OB - PN: Obj Data Labs 07/23/23 04:45 Labs: Laboratory Results - last 24 hr 07/22/23 07/23/23 10:23 04:45 WBC 6.3 7.4 RBC 4.12 L 3.60 L Hgb 12.3 10.7 L Hct 35.8 L 32.2 L MCV 86.9 89.4 MCH 29.9 29.7 MCHC 34.4 33.2 RDW 15.8 H 15.6 H Plt Count 141 L 123 L MPV 9.4 9.7 Immature Gran % (Auto) 0.5 0.5 Neut % (Auto) 65.5 74.3 H Lymph % (Auto) 27.9 19.6 [place] % (Auto) 4.7 3.4 Eos % (Auto) 1.1 1.8 Baso % (Auto) 0.3 0.4 Lymph # (Auto) 1.77 1.44 [place] # (Auto) 0.3 0.3 Eos # (Auto) 0.1 0.1 Baso # (Auto) 0.0 0.0 Abs Immat Gran (auto) 0.03 0.04 H Absolute Neuts (auto) 4.2 5.5 Absolute Nucleated RBC 0.000 0.000 Nucleated RBC % 0.0 0.0 RPR Non-reactive HIV 1&2 Ab/P24 Ag 4thGn Negative Blood Type A Positive Antibody Screen Negative OB - PN A/P Plan Comments: A: POD#1, doing well. P: Routine care. Exam Narrative: AVSS I/O OK ABD soft, nontender, fundus firm. Incision c/d/i. EXT nontender
[2023-07-23 12:08] VITALS: BP 113/70; PULSE 82; RESP 16; TEMP 36.9; O2SAT 98
[2023-07-23] MEDS: LIDOCAINE 5% PATCH 1 PATCH TRANSDERM (15:13)
[2023-07-23] MEDS: HYDROcodone/acetaminophen (*CRX) 5-325 MG TABLET 1 TAB PO (17:12)
[2023-07-23] MEDS: IBUPROFEN 600 MG TABLET PO (18:55)
[2023-07-23 19:00] VITALS: BP 111/75; PULSE 94; RESP 18; TEMP 36.9; O2SAT 98
[2023-07-24] MEDS: ACETAMINOPHEN 325 MG TABLET 650 MG PO ×2 (00:25→07:26)
[2023-07-24] MEDS: IBUPROFEN 600 MG TABLET PO ×2 (00:25→07:26)
--- NOTE | 2023-07-24 05:59 | PM.OBPNVD ---
OB - PN: Subj Subjective Date/time seen: 07/24/23 05:59 Patient comments: no complaints and pain well controlled baby status: doing well and nursing well OB - PN: Obj Data Labs 07/23/23 04:45 OB - PN A/P Plan day: 2 Plan: routine care, discharge home and follow up 6 weeks (4) Time Spent With Patient Time: Total time spent is greater than 50% in coordination of care (as documented) at patient's floor/unit and/or counseling patient: Time with patient: less than 15 minutes Exam Const: General: cooperative, healthy appearing and comfortable Nutritional Appearance: average body habitus Orientation/consciousness: oriented to person, oriented to place and oriented to time HENMT: Head: normal to inspection Resp: Effort & Inspection: normal respiratory effort Cardio: Rate: regular rate Rhythm: regular rhythm Heart sounds: S1 normal heart sound present and S2 normal heart sound present GI: Inspection: normal to inspection and incision (cdi)
[2023-07-24] MEDS: SIMETHICONE 80 MG TAB.CHEW PO (07:25)
[2023-07-24] MEDS: DOCUSATE SODIUM 100 MG CAPSULE PO (07:26)
[2023-07-24 07:38] VITALS: BP 108/69; PULSE 75; RESP 20; TEMP 36.6; O2SAT 99
[2023-07-25 10:23] VITALS: BP 118/72; PULSE 78; RESP 18; TEMP 36.7; O2SAT 100
== END 2023-07-24 11:30 | disposition home or self-care (01) | DRG 788 ==
LOC: ANHLDR 13:23 → ANHOB2 07-24 09:12 → ANHLDR 07-27 08:32 → ANHOB2 07-27 08:32
PROVIDERS: Admitting Provider Obstetrics & Gynecology; PCP Internal Medicine; Visit Provider Obstetrics & Gynecology
PROC: 10D00Z1 Extraction of Products of Conception, Low, Open Approach (ICD-10-PCS; CPT 59514; principal; 2023-07-22 12:00)
DX: O34.219 Maternal care for unspecified type scar from previous cesarean delivery (principal); O36.63X0 Maternal care for excessive fetal growth, third trimester, not applicable or unspecified; Z3A.39 39 weeks gestation of pregnancy; Z37.0 Single live birth
CPT/HCPCS: 36415; 85025; 86592; 86703; 86850; 86900; 86901; A9270; G0432; J0690; J1200; J1596; J1885; J2274; J2371; J2405; J2590; J3010; J7120